=== PATIENT | male | born 1950 | race Caucasian/White ===

== ENCOUNTER → 2018-07-30 09:55 | Outpatient (CLI) | payer MEDICARE, OTHER ==
[2015-07-01 10:33] VITALS: BMI 24.3
[~2018-07-30 09:55] MED LIST: ACETAMINOPHEN325 MG PO; AVODART0.5 MG PO; BENADRYL25 MG PO; CARAFATE1 G/10 ML PO; CELEXA20 MG PO; ELECTROLYTE PROTOCOL; FLAGYL500 MG PO; FLORANEX / LACT1 TAB PO; HYTRIN10 MG PO; IMODIUM2 MG PO; KLONOPIN1 MG PO; LOPERAMIDE HCL2 MG PO; MAG-OX 400 MG400 MG PO; MAGNESIUM S1 G/50 ML IV; MAGNESIUM-2 GM/50 M1 IV; MORPHINE IMMEDI30 M1 PO; MORPHINE SULFAT30 M4 PO; NEUTRA-PHOS PAC1 PK1 PO; ONDANSETRON4 MG/2 M3 IV; PEPCID INJ20 MG/2 ML IV; PEPCID40 MG PO; POTASSIUM10 MEQ/100 IV; POTASSIUM20 MEQ/101 IV; POTASSIUM20 MEQ/15 PO; PRILOSEC20 MG PO; QUESTRAN LIG1 PACKET PO; QUESTRAN PACK4 G/PKT PO; REGLAN10 MG PO; SODIUM CL 0.91000 ML IV; SODIUM PHO40 MMOL/25 IV; TUCKS MEDICATE1 EACH TOPICAL; ZOFRAN4 MG PO; ZOSYN 3.3753.375 G1 IV
== END | disposition home or self-care (01) ==
LOC: D.MRI 09:55
DX: M25.521 Pain in right elbow (principal)